=== PATIENT | female | born 1995 | race Caucasian/White ===

== ENCOUNTER 2022-04-30 04:03 | Emergency (ER) | payer BC, SELFPAY ==
[2022-04-30] VITALS (9 sets, daily range): BP systolic 100–124; BP diastolic 62–85; PULSE 108; RESP 19; TEMP 36.6; O2SAT 97–100
[2022-04-30 04:42] LABS: Basophils Absolute Auto 0.1 K/mm3 (0.0-0.1); Basophils Percent Auto 0.8 % (0.2-1.2); Eosinophils Absolute Auto 0.4 K/mm3 (0-0.3); Eosinophils Percent Auto 4.3 % (0-4.4); Hematocrit 39.6 % (37.0-47.0); Hemoglobin 12.9 g/dL (12.0-15.0); Immature Granulocyte Absolute 0.01 K/mm3 (0.00-0.031); Immature Granulocyte Percent A 0.1 % (0-0.5); Lymphocytes Absolute Auto 3.67 K/mm3 (0.9-3.2); Lymphocytes Percent Auto 40.4 % (18.3-44.2); Mean Corpuscular HGB Conc 32.6 g/dl (32-36); Mean Corpuscular Hemoglobin 28.1 pg (26-34); Mean Corpuscular Volume 86.3 fl (80-100); Mean Platelet Volume 8.8 fl (7.4-10.4); Monocytes Absolute Auto 0.7 K/mm3 (0.1-0.6); Monocytes Percent Auto 8.1 % (2.6-8.5); Neutrophils Absolute Auto 4.2 K/mm3 (1.3-6.7); Neutrophils Percent Auto 46.3 % (45.5-73.1); Platelet Count Result 347 k/mm3 (150-375); Red Blood Count 4.59 M/mm3 (4.2-5.4); Red Cell Distribution Width 13.3 % (11.5-14.5); White Blood Count 9.1 K/mm3 (4.5-10.0)
[2022-04-30 04:47] LABS: Appearance Urine Clear (Clear); Bilirubin Urine Negative (Negative); Blood Urine Trace-intact (Negative); Color Urine Yellow (Yellow); Glucose Urine UA Negative (Negative); Ketones Urine Trace mg/dL (Negative); Leukocyte Esterase Ur Trace LEU/UL (Negative); Nitrate Urine Negative (Negative); Protein Urine Negative (Negative); Specific Grav Ur 1.025 (1.001-1.035); Urobilinogen Urine 0.2 mg/dL (<2.0)
[2022-04-30 04:49] LABS: Bacteria Urine Trace /hpf; Mucus Urine Rare /lpf; RBC Urine 0-2 /hpf (0-2); Squamous Epithelial Cell Urine Few /hpf (Few)
[2022-04-30 04:50] LABS: Add Urine Microscopic? YES
[2022-04-30 04:52] LABS: Alanine Aminotransferase 26 U/L (6-35); Albumin Level 4.7 g/dL (3.5-5.1); Alkaline Phosphatase 74 U/L (38-126); Anion Gap 6 mmol/L (8-16); Aspartate Amino Transferase 25 U/L (14-36); Bilirubin,Total 0.3 mg/dL (0.2-1.3); Blood Urea Nitrogen 12 mg/dL (7-17); Calcium 9.1 mg/dL (8.4-10.2); Carbon Dioxide 27 mmol/L (22-30); Chloride 103 mmol/L (98-107); Estimated CRCL calculation 93 ml/min; Estimated Glomerular Filt Rate > 60; Glucose 120 mg/dL (65-110); Lipase 98 U/L (23-300); Potassium 3.4 mmol/L (3.4-5.0); Sodium 136 mmol/L (137-145)
[2022-04-30] MEDS: NITROFURANTOIN MONOHYD MACROCR 100 MG CAP PO (05:37)
--- NOTE | 2022-04-30 05:38 | ED.ABDPAIN ---
HPI - Abdominal Pain General Chief Complaint: Abdominal Pain Stated Complaint: RLQ abd pain Time Seen by Provider: 04/30/22 04:08 Source: RN notes reviewed History of Present Illness HPI narrative: Patient presents emergency department from home for abdominal pain. The patient was currently bringing her child to the emergency department for an upper respiratory infection. While the patient was in the room she began to develop pain in her right lower quadrant that progressively worsened. The pain was described as sharp and stabbing and did not radiate. She denies any fevers or chills nausea vomiting diarrhea or any other symptoms. States that this time the pain has now resolved she states that she did not have any pain medication for the symptoms she denies any chance of denies any other symptoms at this time Related Data Home Medications Medication Instructions Recorded Confirmed vits 75-iron 28 mg-folic 1 pkg PO ONCE 03/09/19 03/09/19 acid 800 mcg-omega3 440 mg oral pack (Daily ) Allergies Allergy/AdvReac Type Severity Reaction Status Date / Time No Known Allergies Allergy Unknown Verified 04/30/22 04:05 Review of Systems Review of Systems: Gen.: Denies fevers or chills ENT: Denies congestion Respiratory: Denies shortness of breath or cough CV: Denies chest pain or palpitations GI: Reports abdominal pain, denies nausea, emesis or diarrhea denies burning, urgency, frequency or hematuria Musculoskeletal: Denies back pain or muscle pain Neuro: Denies numbness, tingling, weakness or focal weakness Skin: Denies rash Except as documented, all other systems reviewed and negative [facility] Past Medical History Medical History (Updated 04/30/22 @ 05:44 by Jamie Chan DO) Patient denies significant medical history Family History Family History Other Unknown family medical history Social History Social History Smoking status: Never smoker Substance use: never Gender identity (if verbalized by the patient): Female Spiritual care concerns: No Exam Narrative: APPEARANCE: No acute distress, nontoxic, resting in bed EYES: EOMI HEENT: Normocephalic, atraumatic, OMM RESPIRATORY: No respiratory distress Clear to auscultation bilaterally with no rhonchi wheezing or rales. CARDIOVASCULAR: Regular rate and rhythm without murmurs rubs or gallops. ABDOMINAL: Soft, nontender, nondistended, no rebound or guarding MUSCULOSKELETAl: Moves all extremities. No clubbing, cyanosis or edema. NEURO: Awake and alert. Following commands, speech normal, no focal deficits SKIN:: Warm, dry. No rashes lesions or abrasions PSYCHIATRIC: Normal affect/mood, Course Course Emergency Course: Patient has had no abdominal pain since initial onset of pain States abdominal pain has resolved. Repeat abdominal exam shows the patient's abdomen to be soft and nontender. Discussed with patient results of workup and diagnosis. Discussed need for follow-up with primary care physician, reasons to return to the emergency department in proper use of medication. Patient understands and agrees to current treatment plan Vital Signs Vital signs: Vital Signs Temperature 97.8 F 04/30/22 04:07 Pulse Rate 108 H 04/30/22 04:07 Respiratory Rate 19 04/30/22 04:07 Blood Pressure 124/85 04/30/22 04:07 Pulse Oximetry 100 04/30/22 04:07 Temperature 97.8 F 04/30/22 04:07 Pulse Rate 108 H 04/30/22 04:07 Respiratory Rate 19 04/30/22 04:07 Blood Pressure 124/85 04/30/22 04:07 Pulse Oximetry 100 04/30/22 04:07 MDM - Abdominal Pain MDM Narrative Medical decision making narrative: Patient's abdomen is soft without significant pain or signs of surgical abdomen on serial exams. Lab and x-ray evaluations are reviewed and patient is felt to be a reasonable candidate for
== END 2022-04-30 05:52 | disposition home or self-care (01) ==
PROVIDERS: Emergency Provider Emergency Medicine; PCP Emergency Medicine
DX: N39.0 Urinary tract infection, site not specified (principal); R10.31 Right lower quadrant pain
CPT/HCPCS: 36415; 80053; 81001; 81025; 83690; 85025; 87086; 87088; 99283; A9270

== ENCOUNTER 2022-08-30 05:03 | Emergency (ER) | payer BC, SELFPAY ==
[2022-08-30 05:06] VITALS: BP 107/73; PULSE 92; RESP 16; TEMP 36.4; O2SAT 100
--- NOTE | 2022-08-30 05:54 | ED.EYEPROB ---
HPI - Eye Problem General Chief complaint: Eye Problems Stated complaint: left eye green discharge, swelling Time Seen by Provider: 08/30/22 05:30 History of Present Illness HPI Narrative: 27-year-old female presented emergency department for evaluation of left eye redness swelling and drainage. Patient reports that her also likely had conjunctivitis. Patient states that she was having some eye irritation yesterday and woke up this morning and had crusty discharge from the left eye along with swelling of the eyelid and conjunctival injection. Patient does not wear contacts. Related Data Home Medications Medication Instructions Recorded Confirmed vits 75-iron 28 mg-folic 1 pkg PO ONCE 03/09/19 03/09/19 acid 800 mcg-omega3 440 mg oral pack (Daily ) Allergies Allergy/AdvReac Type Severity Reaction Status Date / Time No Known Allergies Allergy Unknown Verified 08/30/22 05:04 Review of Systems Review of Systems: All systems reviewed & are unremarkable except as noted in HPI and below PMFSH Past Medical History Medical History (Updated 08/31/22 @ 00:00 by Katerine Us) Patient denies significant medical history Family History Family History Other Unknown family medical history Social History Social History Smoking status: Never smoker Substance use: never Gender identity (if verbalized by the patient): Female Spiritual care concerns: No Exam Narrative: APPEARANCE: Well appearing, no pain, no distress, well-nourished. HEAD: normocephalic, atraumatic. EYES: Conjunctiva injection, edema of upper and lower lid, no tenderness to palpation, no evidence of orbital periorbital cellulitis. NOSE: Normal no drainage EARS:TMS clear with good light reflex. THROAT: Pharynx clear, no exudate. NECK: Supple. No adenopathy, no masses. RESPIRATORY: Airway patent, respirations nonlabored. Clear to auscultation bilaterally, no rales, rhonchi, wheezing. CARDIOVASCULAR: Regular rate and rhythm without murmurs rubs or gallops. ABDOMINAL: Soft, nontender, nondistended, normal bowel sounds MUSCULOSKELETAL: Moves all extremities. Strength/ROM intact, No edema, No calf tenderness. NEURO: Alert. Cranial nerves II through XII intact. Grossly intact SKIN: Warm, dry. Normal Color Course Course Emergency Course: Patient is being treated for conjunctivitis. Patient was started on Polymycin in the emergency department and was discharged home with a prescription. Patient was encouraged of close follow-up with her primary care physician. Vital Signs Vital signs: Vital Signs Temperature 97.5 F L 08/30/22 05:06 Pulse Rate 92 08/30/22 05:06 Respiratory Rate 16 08/30/22 05:06 Blood Pressure 107/73 08/30/22 05:06 Pulse Oximetry 100 08/30/22 05:06 Oxygen Delivery Room Air 08/30/22 05:06 Temperature 97.5 F L 08/30/22 05:06 Pulse Rate 92 08/30/22 05:06 Respiratory Rate 16 08/30/22 05:06 Blood Pressure 107/73 08/30/22 05:06 Pulse Oximetry 100 08/30/22 05:06 Oxygen Delivery Room Air 08/30/22 05:06 MDM - Eye Problem Differential Diagnosis Differential diagnosis: Likely conjunctivitis and periorbital cellulitis Discharge Plan Discharge Clinical Impression: Bacterial conjunctivitis Patient Disposition: Home, Self-Care Condition: Stable Instructions: Antibiotic Form Additional Instructions: Antibiotic drops as directed, have close follow-up with your primary care physician. Prescriptions: New polymyxin B sulf-trimethoprim 10,000 unit- 1 mg/mL drops 1 drp LEFT EYE Q3H 7 Days Qty: 10 0RF Rx Instructions: while awake; do not exceed 6 doses in 24 hours No Action Daily [id number] mg-mcg-mg Combo Pack 1 pkg PO ONCE nitrofurantoin monohyd/m-cryst [Macrobid] 100 mg capsule 100 mg PO
[2022-08-30] MEDS: POLYMYXIN/TRIMETHOPRIM OPHTH 10 ML DROPS 1 DROP LEFT EYE (06:12)
== END 2022-08-30 06:16 | disposition home or self-care (01) ==
PROVIDERS: Emergency Provider Emergency Medicine
DX: H10.89 Other conjunctivitis (principal)
CPT/HCPCS: 99283; A9270

== ENCOUNTER 2023-11-11 10:48 | Outpatient (CLI) | payer BC, SELFPAY ==
--- NOTE | ~2023-11-11 | US_ITS ---
Pelvic ultrasound. Clinical History: First trimester , establish dates and viability Technique: Realtime transabdominal and transvaginal scanning of the pelvis was performed. Color flow Doppler and Doppler spectral analysis were performed. Findings: The uterus is anteverted, and contains an intrauterine gestation.. Carroll-rump length of 1.1 cm corresponds to an estimated gestational age of 7 weeks 2 days. Yolk sac present. heart rate is 151 bpm. The right ovary measures 3.3 x 2.2 x 3.8 cm. No significant right ovarian or adnexal mass is seen. The left ovary measures 2.2 x 2.3 x 2.1 cm. No significant left ovarian or adnexal mass is seen. There is no evidence of free fluid in the cul de sac. Impression: Live intrauterine gestation, with estimated gestational age of 7 weeks 2 days. heart rate is 15 1 bpm. Sonographic DAYANA is 06/24/2024. Reviewed, dictated and finalized at [facility]. Impression: Live intrauterine gestation, with estimated gestational age of 7 weeks 2 days. heart rate is 151 bpm. Sonographic DAYANA is 06/24/2024.
== END 2023-11-11 10:49 | disposition home or self-care (01) ==
PROVIDERS: PCP Obstetrics & Gynecology; Visit Provider Obstetrics & Gynecology
DX: N91.2 Amenorrhea, unspecified (principal)
CPT/HCPCS: 76801; 76817

== ENCOUNTER 2023-12-23 14:01 | Outpatient (CLI) | payer BC, SELFPAY ==
--- NOTE | ~2023-12-23 | US_ITS ---
EXAMINATION: US OB <= 14 weeks fetus DATE: 12/23/2023 14:27 INDICATION: Cramping. Other specified conditions. First trimester. TECHNIQUE: Real-time transabdominal pelvic ultrasound was performed. COMPARISON: Ultrasound 11/11/2023 FINDINGS: The uterus measures 11.3 x 7.8 x 7.7 cm. There is an intrauterine gestational sac. The crown r ump length measures 7.1 cm, which correlates with an estimated gestational age of 13 weeks and 2 day( s) (+/-) 1 week(s) and 1 day(s). heart motion is identified measuring 97 beats per minute (bpm) by M-mode Doppler. The ovaries are not visualized. There is no free fluid in the pelvis. IMPRESSION: 1. Single living intrauterine gestation with estimated date of delivery of 06/24/2024 based on the ul trasound from 11/11/2023. Reviewed, dictated and finalized at location [facility]. IMPRESSION: 1. Single living intrauterine gestation with estimated date of delivery of 06/06 based on the ultrasound from 11/11/2023.
== END 2023-12-23 14:02 | disposition home or self-care (01) ==
LOC: GOSHIMG 14:02
PROVIDERS: PCP Obstetrics & Gynecology; Visit Provider Obstetrics & Gynecology
DX: N94.89 Other specified conditions associated with female genital organs and menstrual cycle (principal)
CPT/HCPCS: 76801